=== PATIENT | female | born 1965 | race Caucasian/White ===

== ENCOUNTER 2023-12-16 15:22 | Emergency (ER) | payer BC, SELFPAY ==
[2023-12-16] VITALS (22 sets, daily range): BP systolic 103–153; BP diastolic 67–96
--- NOTE | 2023-12-16 15:55 | ED.GENMED ---
History of Present Illness
<Tai Lemus PA-C - Last Filed: 12/16/23 20:22>
General
Chief Complaint: Fall
Source: patient
Time Seen by Provider: 12/16/23 15:31
Travel History
Have you had any contact with someone who has COVID-19?: No
Do you have any symptoms of coronavirus? Fever > 100 degrees, chills, cough, shortness of breath, sore throat, loss of taste or smell, muscle aches, or headache?: No
History of Present Illness
History of Present Illness:
58-year-old female with past medical history of hyperlipidemia presenting to the emergency department after she was standing on a stool and fell backwards into a storage bin injuring the right side of her thoracic region/axillary region. Patient
states that she will get sharper bursts of pain intermittently especially when standing prompting her come to the ER for further evaluation. She denies any head injury, loss consciousness, vomiting, visual changes. Did not take anything for pain.
She states deep inspiration does not seem to make the pain much worse. No other injuries or concerns. Denies use of anticoagulants.
Past History
<Tai Lemus PA-C - Last Filed: 12/16/23 20:22>
Past History
ED Past Medical History: Hypercholesterolemia
ED Past Surgical History: Other
Social History
Tobacco: Non-smoker
Alcohol: Occasional
Drug: None
Personal:
Living: with family
Employment: Employed (Works as a client application support engineer)
Review of Systems
<Tai Lemus PA-C - Last Filed: 12/16/23 20:22>
Review of Systems
All Other Systems: ROS reviewed and negative except as documented in HPI and ROS
Phy Exam
<Tai Lemus PA-C - Last Filed: 12/16/23 20:22>
Physical Exam
Physical Exam:
GENERAL: Alert , in no apparent distress
EYE: conjunctiva clear
NECK: Supple
ENT: o/p clr, mmm.
CARDIAC: Regular rate and rhythm
LUNGS: Diminished lung sounds throughout on the right, no flail chest, no clear signs of trauma
Chest wall: No focal areas of bony tenderness, signs of ecchymosis, abrasion/laceration. No bony step-offs, no flail chest
NEUROLOGICAL: Alert and oriented
SKIN: Warm and dry, skin intact.
MUSCULOSKELETAL: well perfused.
PSYCH: Normal and appropriate interaction.
Scores
<Tai Lemus PA-C - Last Filed: 12/16/23 20:22>
Heart Failure Risk
Heart Failure Risk Score: Not Applicable
Heart Score for Chest Pain Patients
STEMI patient?: Not applicable
Withdrawal Assessment of Alcohol
Withdrawal Assessment Completed?: Not applicable
Course
<Tai Lemus PA-C - Last Filed: 12/16/23 20:22>
Orders/Labs/Results
Orders:
Orders
12/16/23 15:29
Ribs, Right 3 View W/PA Chest [CR Ribs-right 3 Vw W/pa Chest*] Urgent
Comment:
Reason For Exam: pain
12/16/23 16:19
Basic Metabolic Panel Urgent
Complete Blood Count/With Diff Urgent
PTT Urgent
Prothrombin Time Urgent
12/16/23 16:20
CT Chest/abd/pel W Iv Cont Urgent
Comment:
Reason For Exam: large right ptx from fall
12/16/23 16:34
HYDROmorphone [Dilaudid] 1 mg .ROUTE .STK-MED ONE
Propofol [Diprivan] 20 ml .ROUTE .STK-MED
12/16/23 17:10
CR Chest Portable - 1 View Urgent
Comment:
Reason For Exam: chest tube placemenet verification
Reason Study Needs to be Portable: Unable to Transport
12/16/23 18:07
HYDROmorphone [Dilaudid] 1 mg IV NOW STA
Abnormal Lab Results
12/16/23
16:19
WBC 11.8 H 10^3/uL
(4.8-10.8)
Absolute Neuts (auto) 10.2 H 10^3/uL
(1.4-6.5)
Absolute Lymphs (auto) 1.0 L 10^3/uL
(1.2-3.4)
Neutrophils % 86.1 H %
(42.2-75.2)
Lymphocytes % 8.7 L %
(20.5-51.1)
BUN 18 H mg/dl
(7-17)
Glucose 109 H mg/dl
(70-99)
12/16/23 16:19
12/16/23 16:19
Vital Signs
Initial and Last Documented VS:
Initial Vital Signs
Temp Pulse Resp BP Pulse Ox
97.8 F 88 18 103/69 97
12/16/23 15:25 12/16/23 15:25 12/16/23 15:25 12/16/23 15:25 12/16/23 15:25
Last Documented Vital Signs
Temp Pulse Resp BP Pulse Ox
98.0 F 100 23 153/95 100
12/16/23 17:45 12/16/23 18:05 12/16/23 18:05 12/16/23 18:05 12/16/23 18:05
<Primitivo Craft MD - Last Filed: 12/16/23 17:21>
Orders/Labs/Results
Orders:
Orders
12/16/23 15:29
Ribs, Right 3 View W/PA Chest [CR Ribs-right 3 Vw W/pa Chest*] Urgent
Comment:
Reason For Exam: pain
12/16/23 16:19
Basic Metabolic Panel Urgent
Complete Blood Count/With Diff Urgent
PTT Urgent
Prothrombin Time Urgent
12/16/23 16:20
CT Chest/abd/pel W Iv Cont Urgent
Comment:
Reason For Exam: large right ptx from fall
12/16/23 16:34
HYDROmorphone [Dilaudid] 1 mg .ROUTE .STK-MED ONE
Propofol [Diprivan] 20 ml .ROUTE .STK-MED
12/16/23 17:10
CR Chest Portable - 1 View Urgent
Comment:
Reason For Exam: chest tube placemenet verification
Reason Study Needs to be Portable: Unable to Transport
12/16/23 18:07
HYDROmorphone [Dilaudid] 1 mg IV NOW STA
Abnormal Lab Results
12/16/23
16:19
WBC 11.8 H 10^3/uL
(4.8-10.8)
Absolute Neuts (auto) 10.2 H 10^3/uL
(1.4-6.5)
Absolute Lymphs (auto) 1.0 L 10^3/uL
(1.2-3.4)
Neutrophils % 86.1 H %
(42.2-75.2)
Lymphocytes % 8.7 L %
(20.5-51.1)
BUN 18 H mg/dl
(7-17)
Glucose 109 H mg/dl
(70-99)
12/16/23 16:19
12/16/23 16:19
Vital Signs
Initial and Last Documented VS:
Initial Vital Signs
Temp Pulse Resp BP Pulse Ox
97.8 F 88 18 103/69 97
12/16/23 15:25 12/16/23 15:25 12/16/23 15:25 12/16/23 15:25 12/16/23 15:25
Last Documented Vital Signs
Temp Pulse Resp BP Pulse Ox
98.0 F 100 23 153/95 100
12/16/23 17:45 12/16/23 18:05 12/16/23 18:05 12/16/23 18:05 12/16/23 18:05
<Primitivo Craft MD - Last Filed: 12/16/23 17:21>
Moderate Sedation
ASA Risk Score: Class II
Chart and allergies reviewed: Yes
Consent for anesthesia obtained: Yes
Time out completed (validating right patient & procedure): Yes
History of difficult intubation: No
Airway free of obstruction: Yes
Patient has a gag reflex: Yes
Patient is able to open mouth: Yes
Patient has no dentures: Yes
Patient has no loose teeth: Yes
Medication administered by Provider during Moderate Sedation: IV Propofol (mg)
Total dose administered: 180
Time drug administered: 16:48
Start Time: 16:48
Stop Time: 17:16
Chest Tube
Indication for procedure:: pneumothorax
Procedure completed by: Primitivo Craft MD
Consent form signed: Yes
Anesthesia: other (moderate sedation)
Chest tube placed to: right side
Size of chest tube (cm): 14
Preparation: cleaned with Betadine
Chest tube position: anterior axillary line
Chest tube sutured to skin?: Yes
Chest tube complications: none
<Tai Lemus PA-C - Last Filed: 12/16/23 20:22>
MDM/Problems Addressed
Differential Diagnosis Includes:
Rib contusion, rib fracture, cartilage injury, pneumothorax/visceral injury
MDM/Problems Addressed:
58-year-old female presenting the emergency department for evaluation after an accidental slip and fall from a stool and accidentally fell back into a storage bin. Patient complaining of pain to the right thoracic/axillary region. Physical exam
does reveal a diminished lung sounds throughout on the right in the upper and lower lung johnson. Rib series was ordered and there does appear to be a moderate to large sized pneumothorax. I do not visualize any obvious rib fractures. Due to the
size of the pneumothorax patient will need a chest tube placed. Considering CT imaging to evaluate for rib fracture. Reassessment following
<Tai Lemus PA-C - Last Filed: 12/16/23 20:22>
*Radiology
Radiology exam reviewed: preliminary read by ED provider (Pneumothorax)
*Pulse Oximetry
Patient hypoxic: no
*Critical Care Note
Total Time (30-74mins, 75-104mins- exclusive of procedures): 45
comment:
Critical care statement: A total of 45 minutes of critical care time was provided for this patient. This includes management of unstable vital signs, evaluation of the patient at bedside, reviewing the patient's pertinent medical records, discussion
with consultants, review of old EKGs and review of pertinent medical records. This time with separate from time utilized to perform the aforementioned documented procedures
<Tai Lemus PA-C - Last Filed: 12/16/23 20:22>
Patient Management
Discussion with other providers: [employer]
Escalation/DeEscalation of care consider admission/obs:
12/16/2023 1633 PM: Case was discussed with Dr. Munoz from [facility] who accepts patient in transfer. Agrees with plan for CT of the chest abdomen and pelvis. They are aware that we were placing a chest tube.
12/16/2023 1724 PM: Patient tolerated chest tube with minimal difficulty. She awoke from sedation with minimal pain and is declining anything for pain at this time. Repeat chest x-ray film was obtained which showed successful reinflation of the
right lung. CT of the chest pending. Transport services state they will be here around 6 PM for transfer.
ED Attending Note
<Tai Lemus PA-C - Last Filed: 12/16/23 20:22>
-
Portions of this chart may have been created with voice recognition software.� Occasional wrong word or��sound alike� substitutions may have occurred due to the inherent limitations of voice recognition software.
<Primitivo Craft MD - Last Filed: 12/16/23 17:21>
ED Attending Note
Patient seen and examined by attending physician: Yes
ED Attending Note:
I have seen and evaluated the patient with a [id number] encounter. I have spoken to the advance practicer provider and involved in the medical history, the physical exam, medical decision making.
Evaluation and management service: agree unless noted differently below.
Results interpretation: agree unless noted differently below.
Focused HPI: 58-year-old female with a history of hyperlipidemia presents for evaluation of right-sided chest pain after fall. Patient was on a stepping stool and fell and landed on her right side; she says that there was a plastic container
underneath her on the right side. She has had pain in the right side since. Worse with inspiration. Mild shortness of breath. Denies any head trauma. Denies any headache or neck pain. Denies any back pain. Denies any abdominal pain. Denies
any pain in her extremities. Denies numbness or weakness in extremities. Denies being on blood thinners.
Physical exam: Awake and alert oriented x 3 with GCS of 15. Vital signs all within normal limits. She has mild tenderness right lateral ribs. Diminished breath sounds on the right. She has no signs of trauma to the head. No tenderness in
cervical spine. No tenderness in the thoracic or lumbar spine. No abdominal tenderness or bruising. Extremities are atraumatic. No gross motor or sensory deficits in her extremities.
Medical Decision Makin-year-old female presents after mechanical fall of the stool onto her right side. Complaining of right-sided chest pain and shortness of breath. X-ray of the ribs reviewed by me shows right-sided pneumothorax and
multiple rib fractures on the right. IV placed labs sent off including CBC and CMP, coags. Will send for CT of the chest/abdomen/pelvis to rule out other accompanying injuries. Will place a right-sided chest tube. Will transfer to [place] for
admission pending rest of workup and chest tube placement here.
Discharge Plan
Departure
Patient Disposition: Acute Care Hospital
Date of Disposition: 12/16/23
Time of Disposition: 16:24
Patient with high blood pressure during this ER visit?: No
Discharge Problem:
Pneumothorax, right, Fracture, ribs
Prescriptions:
No Action
Acidophilus
1 cap PO QPM
ascorbic acid (vitamin C) [Vitamin C] 1,000 mg Tablet
3,000 mg PO QPM
Theragen Tablet
1 tab PO QPM
vitamin E 268 mg (400 unit) Capsule
268 mg PO QPM
rosuvastatin 40 mg Tablet
40 mg PO QPM
Glucosamine
2 tab PO QPM
Green Tea
2 tab PO QPM
collagen
3 tab PO QPM
cranberry
2 cap PO QPM
cyanocobalamin (vitamin B-12)
1 tab PO QPM
Referrals:
Dale Matute CRNP [Family Provider] -
Hospital Transfer
Other hospital: [place]
I certify that the patient requires transfer: Yes
Discussed case with accepting physician: Scaff
Reason for transfer: higher level of care
Interventions
Interventions:
*Risk Screen - Suicide Last Done: 12/16/23 15:25
*General Assessment Last Done: 12/16/23 15:25
*Neglect/Abuse Screening Last Done: 12/16/23 15:25
ED- Fall Risk Assessment Last Done: 12/16/23 16:52
*ED COVID-19 Vaccine History Last Done: 12/16/23 15:25
*Nursing Disposition Last Done: 12/16/23 18:19
ED-Musculoskeletal Assessment Last Done: 12/16/23 16:52
ED- Neurological Assessment Last Done: 12/16/23 16:31
ED-Skin Assessment Last Done: 12/16/23 16:52
Discharge Date and Time
Discharge Date/Time: 12/16/23 18:27
[2023-12-16 16:28] LABS: % Basophils 0.3 % (0-2); % Eosinophils 0.1 % (0-6); % Immature Granulocytes 0.3 % (0-0.5); % Lymphocytes 8.7 % (20.5-51.1); % Monocytes 4.5 % (1.7-9.3); % Neutrophils 86.1 % (42.2-75.2); Absolute Monocytes 0.5 10^3/uL (0.1-0.6); Absolute Neutrophils 10.2 10^3/uL (1.4-6.5); Hematocrit 40.8 % (37.0-47.0); Hemoglobin 14.1 g/dL (12.0-16.0); Mean Corp Hgb Conc. 34.6 g/dL (33.0-37.0); Mean Corpuscular Hgb 30.3 pg (27.0-31.0); Mean Corpuscular Volume 87.6 fL (81.0-99.0); Mean Platelet Volume 10.3 fL (7.4-10.4); Nucleated Red Blood Cells % 0 %; Platelet Count 238 10^3/uL (130-400); Red Blood Cell Count 4.66 10^6/uL (4.20-5.40); Red Cell Dist. Width 12.5 % (11.5-14.5); White Blood Cell Count 11.8 10^3/uL (4.8-10.8)
[2023-12-16 16:41] LABS: Blood Urea Nitrogen 18 mg/dl (7-17); Calcium 9.9 mg/dl (8.4-10.2); Carbon Dioxide 24 mmol/L (22-30); Chloride 106 mmol/L (98-107); Glucose 109 mg/dl (70-99); Potassium 4.4 mmol/L (3.5-5.1); Sodium 142 mmol/L (135-145); eGFR > 60.00
[2023-12-16] MEDS: DILAUDID 1 MG IV (18:07)
== END 2023-12-16 18:27 | disposition short-term general hospital (02) ==
LOC: EMR 15:22
PROVIDERS: Physician Assistant Medical; EMERGENCY PHYSICIAN Emergency Medicine; FAMILY PHYSICIAN Nurse Practitioner Family
DX: S22.41XA Multiple fractures of ribs, right side, initial encounter for closed fracture (principal); S27.0XXA Traumatic pneumothorax, initial encounter; W08.XXXA Fall from other furniture, initial encounter; E78.00 Pure hypercholesterolemia, unspecified
CPT/HCPCS: 32551; 99291; 96374; 99152; 71045; 71101; 71260; 74177; 80048; 85025; 85610; 85730; Q9967

== ENCOUNTER → 2024-08-06 06:42 | Outpatient (REF) | payer BC, SELFPAY | LOC: HWRAD 06:42 | PROVIDERS: ATTENDING PHYSICIAN Internal Medicine; FAMILY PHYSICIAN Nurse Practitioner Family | DX: E04.2 Nontoxic multinodular goiter (principal) | CPT/HCPCS: 76536 ==

== ENCOUNTER → 2024-11-05 06:46 | Outpatient (REF) | payer BC, SELFPAY | LOC: HWWDC 06:46 | PROVIDERS: ATTENDING PHYSICIAN Nurse Practitioner Family | DX: Z12.31 Encounter for screening mammogram for malignant neoplasm of breast (principal) | CPT/HCPCS: 77063; 77067 ==

== ENCOUNTER → 2025-01-01 14:23 | Outpatient (REF) | payer BC, SELFPAY | LOC: HWRAD 14:23 | PROVIDERS: ATTENDING PHYSICIAN Obstetrics & Gynecology Gynecology; FAMILY PHYSICIAN Nurse Practitioner Family | DX: Z13.820 Encounter for screening for osteoporosis (principal) | CPT/HCPCS: 77080 ==

== ENCOUNTER → 2025-08-05 11:26 | Outpatient (REF) | payer BC, SELFPAY | LOC: HWRAD 11:26 | PROVIDERS: ATTENDING PHYSICIAN Nurse Practitioner Family; FAMILY PHYSICIAN Nurse Practitioner Family | DX: E04.1 Nontoxic single thyroid nodule (principal) | CPT/HCPCS: 76536 ==